=== PATIENT | male | born 1940 | race Caucasian/White ===

== ENCOUNTER 2021-03-15 04:00 | Inpatient (IN) | payer MEDICARE, BC ==
[2021-03-15] MEDS ORDERED: Nitroglycerin 0.4 MG TAB (25 Tab Bottle) SL PRN ×2 (04:59→14:31)
[2021-03-15] MEDS ORDERED: Morphine 2 MG/ML VIAL SLOW IVP PRN (04:59)
[2021-03-15] MEDS ORDERED: Heparin 10,000 UNITS/ 10 ML VIAL SLOW IVP SCH (05:00)
[2021-03-15] MEDS ORDERED: Heparin 25,000 units/D5W 500 ML IVPB SCH (05:00)
[2021-03-15] MEDS ORDERED: Acetaminophen 325 MG TAB PO PRN (05:02)
[2021-03-15] MEDS ORDERED: Ondansetron PF 4 MG/2 ML Vial IVP PRN (05:02)
[2021-03-15] MEDS ORDERED: Sodium Chloride 0.9% 1,000 ML IV SCH ×2 (05:15→07:13)
[2021-03-15 05:39] VITALS: BMI 27.3
[2021-03-15 05:50] LABS: Hemoglobin 13.5 g/dL (14.0-18.0); Platelet Count 209 thou/uL (130-400)
[2021-03-15] MEDS ORDERED: Clopidogrel Bisulfate 75 MG TAB PO SCH (06:00)
[2021-03-15] MEDS ORDERED: Heparin 10,000 UNITS/ 10 ML VIAL ONE ×2 (06:12→14:16)
[2021-03-15] MEDS ORDERED: Heparin 25,000 units/D5W 500 ML ONE (06:12)
[2021-03-15 07:53] LABS: Troponin I 2.925 ng/mL (< 0.028)
[2021-03-15] MEDS ORDERED: Famotidine 20 MG TAB ONE (08:49)
[2021-03-15] MEDS ORDERED: Clopidogrel Bisulfate 75 MG TAB ONE (08:49)
[2021-03-15] MEDS: Clopidogrel Bisulfate 75 MG TAB PO SCH (08:54)
[2021-03-15] MEDS: Famotidine 20 MG TAB PO SCH (08:54)
[2021-03-15] MEDS ORDERED: Sodium Chloride 0.9% 500 ML IV SCH (09:00)
[2021-03-15] MEDS ORDERED: Iopamidol 370 76% 100 ML VIAL ONE (09:16)
[2021-03-15] MEDS ORDERED: Iopamidol 370 76% 50 ML VIAL FS ONE (09:16)
[2021-03-15 12:59] LABS: Chloride 111 mmol/L (98-107); Potassium 4.7 mmol/L (3.5-5.1); Sodium 140 mmol/L (136-145)
[2021-03-15 13:00] LABS: Calcium 8.7 mg/dL (7.8-10.44); Glucose 132 mg/dL (83-110)
[2021-03-15 13:01] LABS: PTT 140.6 sec (22.9-36.1)
[2021-03-15 13:02] LABS: Anion Gap 15 mmol/L (10-20); Carbon Dioxide 19 mmol/L (23-31)
[2021-03-15 13:04] LABS: Calc. Creatinine Clearance 50 mL/min (70-130)
[2021-03-15 13:05] LABS: BUN (Urea Nitrogen) 17 mg/dL (8.4-25.7)
[2021-03-15] MEDS ORDERED: Lidocaine 1% (PF) 30 ML VIAL ONE (13:46)
[2021-03-15] MEDS ORDERED: Acetaminophen/Codeine 30-300mg Tablet PO PRN ×2 (14:31)
[2021-03-15] MEDS ORDERED: Sodium Chloride 0.9% 200 ML IV PRN (14:31)
[2021-03-15] MEDS ORDERED: Atorvastatin Calcium 40 MG TAB PO SCH (21:00)
[2021-03-15] MEDS: Sodium Chloride 0.9% 1,000 ML IV SCH ×2 (21:23→22:27)
[2021-03-15] MEDS: Atorvastatin Calcium 40 MG TAB PO SCH (21:24)
[2021-03-15] MEDS: Amiodarone 450 MG in Dextrose 5% in Water 250 ML IVPB SCH (23:52)
[2021-03-16] MEDS: Amiodarone 200 MG TAB PO SCH ×2 (08:53→20:21)
[2021-03-16] MEDS: Famotidine 20 MG TAB PO SCH (08:53)
[2021-03-16] MEDS: Clopidogrel Bisulfate 75 MG TAB PO SCH (08:53)
[2021-03-16] MEDS: Atorvastatin Calcium 40 MG TAB PO SCH (20:21)
[2021-03-17] MEDS: Amiodarone 450 MG in Dextrose 5% in Water 250 ML IVPB SCH ×2 (04:09→20:34)
[2021-03-17] MEDS: Amiodarone 200 MG TAB PO SCH ×2 (08:35→21:26)
[2021-03-17] MEDS: Famotidine 20 MG TAB PO SCH (08:35)
[2021-03-17] MEDS: Clopidogrel Bisulfate 75 MG TAB PO SCH (08:35)
[2021-03-17 11:56] VITALS: BP 157/100
[2021-03-17] MEDS ORDERED: Amiodarone 150 MG, Admixture Fee 1 EACH in Dextrose 5% in Water 100 ML IVPB SCH ×2 (12:00→12:45)
[2021-03-17] MEDS ORDERED: Magnesium 2 GM/50 ML 2 GM in Premix Bag 1 BAG IVPB SCH (12:15)
[2021-03-17 13:51] LABS: Hemoglobin 15.6 g/dL (14.0-18.0); Mean Corpuscular HGB CONC 34.5 g/dL (32.0-36.0); Mean Corpuscular Hemoglobin 33.9 pg (27.0-31.0); Mean Corpuscular Volume 98.2 fL (78.0-98.0); Mean Platelet Volume 6.8 fL (7.4-10.4); Platelet Count 238 thou/uL (130-400); RBC Distribution Width 11.2 % (11.5-14.5); Red Blood Cell (RBC) Count 4.61 mill/uL (4.70-6.10); White Blood Cell (WBC) Count 7.9 thou/uL (4.8-10.8)
[2021-03-17 14:14] LABS: ALT (SGPT) 19 U/L (8-55); AST (SGOT) 30 U/L (5-34); Albumin 3.7 g/dL (3.4-4.8); Alkaline Phosphatase 91 U/L (40-110); Anion Gap 15 mmol/L (10-20); BUN (Urea Nitrogen) 9 mg/dL (8.4-25.7); Calc. Creatinine Clearance 50 mL/min (70-130); Calcium 8.9 mg/dL (7.8-10.44); Carbon Dioxide 21 mmol/L (23-31); Chloride 104 mmol/L (98-107); Globulin 3.1 g/dL (2.4-3.5); Glucose 177 mg/dL (83-110); Magnesium 2.7 mg/dL (1.6-2.6); Protein, Total 6.8 g/dL (5.8-8.1); Sodium 136 mmol/L (136-145)
[2021-03-17] MEDS ORDERED: Lidocaine 2 gm/D5W 500 ml 500 ML IVPB SCH (14:15)
[2021-03-17 14:21] LABS: Critical Call Chem Troponin I RESULT DECREASING
[2021-03-17] MEDS ORDERED: Lidocaine 2% PF 100 mg/5 ml Syringe IVP SCH (14:30)
[2021-03-17 14:40] LABS: CKMB 3.8 ng/mL (0-6.6)
[2021-03-17] MEDS ORDERED: DOPamine 400 MG/D5W 250 ML 250 ML ONE (18:53)
[2021-03-17] MEDS: Atorvastatin Calcium 40 MG TAB PO SCH (21:20)
[2021-03-17 22:31] VITALS: TEMP 98.6
== END 2021-03-17 23:25 | disposition short-term general hospital (02) | DRG 280 ==
LOC: ERS 04:00 → ERHOLD 04:26 → IMCU/EMU 13:38 → SURG A 15:42 → IMCU/EMU 19:30 → CCU 03-17 13:23
PROVIDERS: ADMIT Internal Medicine; ATTEND Internal Medicine
PROC: B2111ZZ Fluoroscopy of Multiple Coronary Arteries using Low Osmolar Contrast (ICD-10-PCS; principal; 2021-03-15)
DX: I47.2 Ventricular tachycardia (principal); I21.4 Non-ST elevation (NSTEMI) myocardial infarction; I50.23 Acute on chronic systolic (congestive) heart failure; N17.9 Acute kidney failure, unspecified; I25.10 Atherosclerotic heart disease of native coronary artery without angina pectoris; I08.1 Rheumatic disorders of both mitral and tricuspid valves; N18.30 Chronic kidney disease, stage 3 unspecified; I25.5 Ischemic cardiomyopathy; E78.5 Hyperlipidemia, unspecified; Z96.653 Presence of artificial knee joint, bilateral; R00.1 Bradycardia, unspecified; I95.2 Hypotension due to drugs; T41.3X5A Adverse effect of local anesthetics, initial encounter; Z95.5 Presence of coronary angioplasty implant and graft; Z88.8 Allergy status to other drugs, medicaments and biological substances; Z85.828 Personal history of other malignant neoplasm of skin; Z82.49 Family history of ischemic heart disease and other diseases of the circulatory system; Z87.891 Personal history of nicotine dependence; I25.2 Old myocardial infarction; Z98.42 Cataract extraction status, left eye; Z98.41 Cataract extraction status, right eye
CPT/HCPCS: 36415; 76942; 80053; 82553; 83735; 84484; 85027; 85347; 85730; 93005; 93010; 93306; 93454; 93798; C1769; J0282; J1265; J1644; J2001; J3475; J7070; Q9967